=== PATIENT | male | born 1995 | race Caucasian/White ===

== ENCOUNTER 2017-01-25 09:04 | Emergency (ER) | payer OTHER ==
[~2017-01-25] VITALS: Ht 177.8 cm; Wt 99.8 kg
--- NOTE | 2017-01-25 10:59 | NUR ---
I RESPONDED TO A MOD.TRAUMA IN ED. PT GARCÍA TREVIZO HAD FALLEN AT WORK AND SUFFERED HEAD INJURIES. I MET WITH HIS PARENTS THAT WERE HERE ALREADY. DAD WAS PRETTY DISTRAUGHT, MOM SEEMED TO BE THE ONE HOLDING THINGS TOGETHER. I KEPT THEM UPDATED ON PT'S CONDITION AND ONCE IT WAS DETERMINED TO TRANSPORT, WHERE HE WAS GOING. PRAYED WITH THEM, GAVE THEM [employer] PACKING LIST, AND ENCOURAGED THEM BOTH TO DRIVE DOWN TOGETHER. THEY WERE HAVING TO RENT A CAR-PT BEING TRANSFERRED TO [facility]. THEY HEADED HOME TO PACK AND WAIT FOR A CAR FROM RENTAL AGENCY. RN'S YASEMIN AND JOAQUIN WERE A GREAT HELP TO ME-KEEPING ME INFORMED TO PASS ON TO FAMILY, AND DR JOHNSON WORKED VERY HARD AT SECURING BEDSPACE FOR PT. GOD BLESS THEM
== END 2017-01-25 10:58 | disposition short-term general hospital (02) ==
LOC: ED 09:04
PROC: 0T9B70Z Drainage of Bladder with Drainage Device, Via Natural or Artificial Opening (ICD-10-PCS; principal; 2017-01-25)
DX: S06.6X9A Traumatic subarachnoid hemorrhage with loss of consciousness of unspecified duration, initial encounter (principal); W11.XXXA Fall on and from ladder, initial encounter
CPT/HCPCS: 36415; 51702; 70450; 70486; 71010; 72125; 72170; 80053; 82150; 82550; 85025; 85610; 86850; 86900; 86901; 86920; 96374; 96375; 99285; G0480; J2405; J2550; J3010